=== PATIENT | female | born 1995 | race Caucasian/White ===

== ENCOUNTER 2024-07-15 08:10 | Outpatient (REF) | payer OTHER, SELFPAY | END 2024-07-15 08:11 | disposition home or self-care (01) | LOC: LAB 08:10 | PROVIDERS: Visit Provider Obstetrics & Gynecology | DX: R87.610 Atypical squamous cells of undetermined significance on cytologic smear of cervix (ASC-US) (principal) | CPT/HCPCS: 88305 ==

== ENCOUNTER 2024-07-29 12:15 | Outpatient (OUT) | payer OTHER, SELFPAY ==
--- NOTE | 2024-07-29 12:23 | ECG_ITS ---
[facility] Test Date: 2024-07-29 Pat Name: RADHA ZIMMER Department: Room: - Gender: Female Network Controller: : [id number] Requested By: HOUSTON SCHROEDER Order Number: [id number] Reading MD: GAIL ISRAEL M.D. Measurements Intervals [place] Rate: 74 P: 44 NC: 157 QRS: -14 QRSD: 101 T: -7 QT: 400 QTc: 445 Interpretive Statements SINUS RHYTHM VOLTAGE CRITERIA FOR LVH [MEETS CRITERIA IN ONE OF: R(aVL), S(V1), R(V5), R(V5/V6)+S(V1)] Abnormal ECG No previous ECG available for comparison Electronically Signed On 07-29-2024 16:10:12 EDT by GAIL ISRAEL M.D.
== END 2024-07-29 12:16 | disposition home or self-care (01) ==
LOC: PST 12:16
PROVIDERS: Visit Provider Obstetrics & Gynecology
DX: Z01.810 Encounter for preprocedural cardiovascular examination (principal)
CPT/HCPCS: 93005

== ENCOUNTER 2024-08-09 07:10 | Day surgery (SDC) | payer OTHER, SELFPAY ==
[2024-07-29 12:51] VITALS: BP 137/86; PULSE 74; TEMP 36.2; O2SAT 100; BMI 50.9
[2024-08-09] VITALS (11 sets, daily range): BP systolic 90–145; BP diastolic 69–90; PULSE 78–104; TEMP 36.3–36.4; O2SAT 93–98; BMI 50.6
[2024-08-09 07:26] LABS: Basophils Absolute Auto 0.1 10^3/uL (0.0-0.1); Basophils Percent Auto 0.6 % (0.2-2.0); Eosinophils Absolute Auto 0.3 10^3/uL (0.0-0.7); Eosinophils Percent Auto 3.6 % (0.9-7.0); Hematocrit 41.4 % (36.0-48.0); Hemoglobin 12.9 g/dL (12.0-16.0); Immature Granulocytes Abs Auto 0.02 10^3/uL (0.00-0.03); Immature Granulocytes Pct Auto 0.2 % (0.0-0.5); Lymphocytes Absolute Auto 2.2 10^3/uL (1.2-3.8); Lymphocytes Percent Auto 27.7 % (20.5-60.0); Mean Corpuscular HGB Conc 31.2 g/dL (29.9-35.2); Mean Corpuscular Hemoglobin 26.1 pg (26.7-34.0); Mean Corpuscular Volume 83.8 fL (81.0-99.0); Monocytes Absolute Auto 0.7 10^3/uL (0.3-0.8); Neutrophils Absolute Auto 4.8 10^3/uL (1.4-6.5); Neutrophils Percent Auto 59.9 % (43.0-75.0); Platelet Count 320 10^3/uL (150-450); Red Blood Count 4.94 10^6/uL (4.20-5.40); Red Cell Distribution Width 15.3 % (11.0-15.0); White Blood Count 8.1 10^3/uL (4.0-11.0)
[2024-08-09] MEDS: LACTATED RINGER'S SOLUTION 1,000 ML 50 ML IV ×3 (07:43→12:21)
[2024-08-09 07:51] LABS: HCG Quantitative <1 mIU/mL
[2024-08-09] MEDS: ALBUTEROL SULFATE 2.5 MG/3 ML VIAL NEB IH (08:57)
--- NOTE | 2024-08-09 10:47 | P.ON_ITS ---
Brief Operative Note Date of procedure: 08/09/24 Pre-op diagnosis general: desires permanent sterilization, rt groin skin rash Post-op diagnosis: same as pre-op Procedure: NAME OF PROCEDURE: robotic assisted bilateral laparoscopic salpingectomy PROCEDURE: The patient was taken back to the Operating Room where she was given general anesthesia without difficulty. She was then prepped and draped in the normal sterile fashion after being placed in a dorsal lithotomy position. A wet sponge stick was placed into the patient's vagina. Attention was then turned to the patient's abdomen, where a scalpel was used to make a small infraumbilical incision. The S retractors were then used to dissect the underlying layers until the fascia could be seen. The fascia was then grasped with Kaela clamps and tented up. A knife was then used to make a small incision to the fascia. The muscle was identified, at that time two sutures of #0 Vicryl on a GI needle was then used and placed through the fascia. the peritoneum was then identified and entered bluntly. The 10-4 Ailyn was then placed into the patient's abdomen. This was confirmed with direct visualization of the bowel, using the laparoscope. The patient's abdomen was then insufflated using approximately 4 liters of CO2 gas. Survey of the patient's abdomen demonstrated ovaries were normal in appearance as well as both tubes and uterus. A second and third rt and lt lateral robotic ports which were 8 mm in size, was then placed after the skin incision was made under direct visualization . the robotic arms were engaged. The patient's tube on the patient's right side was identified and tented up using a grasper, the ligasure apparatus was then used to come across the mesosalpingx from the fimbriated end to the insertion site at the uterus, the tube was then amputated and removed in its entirety. This was done on the contralateral side. The tubes were the removed from the patients abdomen. Excellent hemostasis was noted. The lateral ports were then moved under direct visualization with excellent hemostasis. All instruments were removed from the patient's abdomen. The fascia was closed using the #0 Vicryl on GI needle. The skin was closed using 4-0 Vicryl subcuticularly. All instruments were removed from the patient's vagina as well. The patient was taken out of the dorsal lithotomy position and placed in the supine position and taken to recovery in stable condition. Sponge, lap and needle counts were correct x2. please not rt groin skin bx performed with 4mm punch Anesthesia: SAMMI Surgeon: Vikas Kaye Electric Razor Mechanic: Arcelia Guallpa Estimated blood loss (mL): 10 Pathology: other (tubes and rt groin skin sample) Condition: stable Disposition: PACU Urinary Catheter Management Urinary Catheter Management Urethral: Cath placed during this visit: no
[2024-08-09] MEDS: HYDROCODONE/ACET 5-325 MG TABLET 1 TAB PO (11:48)
== END 2024-08-09 13:10 | disposition home or self-care (01) ==
PROVIDERS: Visit Provider Obstetrics & Gynecology
PROC: (CPT 00840; principal; 2024-08-09 08:30)
DX: Z30.2 Encounter for sterilization (principal); L11.9 Acantholytic disorder, unspecified; Z98.84 Bariatric surgery status; E66.01 Morbid (severe) obesity due to excess calories; Z68.43 Body mass index [BMI] 50.0-59.9, adult; Z90.49 Acquired absence of other specified parts of digestive tract; Z87.891 Personal history of nicotine dependence; J45.909 Unspecified asthma, uncomplicated; K21.9 Gastro-esophageal reflux disease without esophagitis; I10 Essential (primary) hypertension
CPT/HCPCS: 00840; 11104; 58661; 36415; 84702; 85025; 94640; J1100; J1171; J1885; J2250; J2371; J2405; J2704; J3010